=== PATIENT | female | born 2000 | race Caucasian/White ===

== ENCOUNTER 2019-08-21 09:49 | Emergency (ER) | payer SELFPAY ==
--- NOTE | 2019-08-21 11:11 | EDM.PDOC ---
ED HPI GENERAL MEDICAL PROBLEM - General Chief Complaint: Lower Extremity Injury/Pain Stated Complaint: LEFT ANKLE INJURY Time Seen by Provider: 08/21/19 10:28 Source of Information: Reports: Patient History Limitations: Reports: No Limitations - History of Present Illness INITIAL COMMENTS - FREE TEXT/NARRATIVE: The patient presents with left hand and left ankle pain. She slipped and fell down a couple steps at her friend's house. She has swelling to her left ankle and left hand with some ecchymosis to the base of the thumb. She did not hit her head and she has no neck pain. Onset: Sudden Duration: Minutes: Location: Reports: Upper Extremity, Left (hand), Lower Extremity, Left (ankle) Quality: Reports: Sharp Severity: Moderate Improves with: Reports: None Worsens with: Reports: None Associated Symptoms: Reports: No Other Symptoms Left Ankle Pain Score (Numeric/FACES): 10 - Related Data Allergies Allergy/AdvReac Type Severity Reaction Status Date / Time No Known Allergies Allergy Verified 08/21/19 10:57 Home Meds: Home Meds . [No Known Home Meds] 08/21/19 [History] Past Medical History - Past Health History Medical/Surgical History: Denies Medical/Surgical History Social & Family History - Family History Family Medical History: Noncontributory - Tobacco Use Smoking Status *Q: Current Every Day Smoker Years of Tobacco use: 1 Packs/Tins Daily: 0.4 Used Tobacco, but Quit: No Second Hand Smoke Exposure: No - Caffeine Use Caffeine Use: Reports: Coffee, Soda - Recreational Drug Use Recreational Drug Use: No Review of Systems - Review of Systems Review Of Systems: See Below Constitutional: Reports: No Symptoms Eyes: Reports: No Symptoms Ears: Reports: No Symptoms Nose: Reports: No Symptoms Mouth/Throat: Reports: No Symptoms Respiratory: Reports: No Symptoms Cardiovascular: Reports: No Symptoms GI/Abdominal: Reports: No Symptoms Genitourinary: Reports: No Symptoms Musculoskeletal: Reports: Other (Left ankle and left hand) ED EXAM, GENERAL - Physical Exam Exam: See Below Exam Limited By: No Limitations General Appearance: Alert, No Apparent Distress Ears: Normal External Exam Nose: Normal Inspection Head: Atraumatic, Normocephalic Neck: Normal Inspection Respiratory/Chest: No Respiratory Distress Extremities: Other (Area of ecchymosis to the base of the thumb with pain upon palpation. Edema and pain upon palpation to the left ankle. with good sensaton and pulses distally.) Course - Vital Signs Last Recorded V/S: Last Vital Signs Temp 98.5 F 08/21/19 10:52 Pulse 94 08/21/19 10:52 Resp 17 08/21/19 10:52 BP 97/71 08/21/19 10:52 Pulse Ox 99 08/21/19 10:52 - Orders/Labs/Meds Orders: Active Orders 24 hr Category Date Time Status Ankle Min 3V Lt [CR] Stat Exams 08/21/19 10:47 Taken Hand Comp Min 3V Lt [CR] Stat Exams 08/21/19 10:48 Taken Durable Medical Equipment for Discharge [DME for Oth 08/21/19 11:19 Ordered Discharge] [COMM] Stat - Re-Assessments/Exams Free Text/Narrative Re-Assessment/Exam: 08/21/19 11:11 I ordered an x-ray of her left hand and ankle and there is no fracture. Departure - Departure Time of Disposition: 11:25 Disposition: Home, Self-Care 01 Condition: Good Clinical Impression: Fall Qualifiers: Encounter type: initial encounter Qualified Code(s): W19.XXXA - Unspecified fall, initial encounter Left ankle sprain Qualifiers: Encounter type: initial encounter Involved ligament of ankle: unspecified ligament Qualified Code(s): S93.402A - Sprain of unspecified ligament of left ankle, initial encounter Contusion of left hand Qualifiers: Encounter type: initial encounter Qualified Code(s): S60.222A - Contusion of left hand, initial encounter - Discharge Information *PRESCRIPTION DRUG MONITORING PROGRAM REVIEWED*: Not Applicable *COPY OF PRESCRIPTION DRUG MONITORING REPORT IN PATIENT DESIREE: Not Applicable Referrals: PCP,None [Primary Care Provider] - Diane Wood PA-C [[facility]] - 1 Week Forms: ED Department Discharge Additional Instructions: Ice your ankle for 15 minutes 3 times per day for 2 days. Try to elevate your ankle as much as you can for 2 days. Use the splint and crutches as needed. Take tylenol or motrin as needed for pain. Please return if you are worse. Follow up with Diane Wood within a week or two if you are not better. Sepsis Event Note - Evaluation Sepsis Screening Result: No Definite Risk - Focused Exam Vital Signs: Vital Signs Temp Pulse Resp BP Pulse Ox 08/21/19 10:52 98.5 F 94 17 97/71 99 Date Exam was Performed: 08/21/19 Time Exam was Performed: 11:19 - My Orders Last 24 Hours: My Active Orders 08/21/19 10:47 Ankle Min 3V Lt [CR] Stat 08/21/19 10:48 Hand Comp Min 3V Lt [CR] Stat 08/21/19 11:19 Durable Medical Equipment for Discharge [DME for Discharge] [COMM] Stat - Assessment/Plan Last 24 Hours: My Active Orders 08/21/19 10:47 Ankle Min 3V Lt [CR] Stat 08/21/19 10:48 Hand Comp Min 3V Lt [CR] Stat 08/21/19 11:19 Durable Medical Equipment for Discharge [DME for Discharge] [COMM] Stat
--- NOTE | 2019-08-21 12:36 | CR ---
Left hand: Four views of the left hand were obtained. Comparison: No previous hand exam. No fracture, dislocation or other bony abnormality is seen. Impression: 1. No abnormality is seen on four-view left hand exam. Diagnostic code #1 This report was dictated in [place] Standard Time
--- NOTE | 2019-08-21 12:36 | CR ---
Left ankle: Four views of the left ankle were obtained. Comparison: No previous ankle study. Soft tissue swelling is identified. Ankle mortise is symmetric. No fracture, dislocation or other bony abnormality is seen. Impression: 1. Soft tissue swelling. 2. No acute bony abnormality is appreciated on left ankle exam. Diagnostic code #2 This report was dictated in [place] Standard Time
== END 2019-08-21 12:10 | disposition home or self-care (01) ==
LOC: JD.ED 09:49
DX: S93.402A Sprain of unspecified ligament of left ankle, initial encounter (principal); S60.222A Contusion of left hand, initial encounter; F17.210 Nicotine dependence, cigarettes, uncomplicated; W10.8XXA Fall (on) (from) other stairs and steps, initial encounter; Y92.009 Unspecified place in unspecified non-institutional (private) residence as the place of occurrence of the external cause
CPT/HCPCS: 73130-26-LT; 73130-LT; 73610-26-LT; 73610-LT; 99282; 99283-25